=== PATIENT | female | born 1955 | race Caucasian/White ===

== ENCOUNTER 2018-02-16 17:33 | Emergency (ER) | payer BC ==
[2018-02-16 18:22] VITALS: BP 145/96
--- NOTE | 2018-02-16 19:09 | UC ---
Respiratory Complaint HPI - HPI Summary HPI Summary: 4 day hx of sinus pressure, cough, no fever or shortness of breath. Concerned because of hx of pneumonia. Has used inhalers in the past for mild asthma she has had post pneumonia. Works in a first grade classroom. - History of Current Complaint Chief Complaint: UCGeneralIllness Stated Complaint: UPPER RESPIRATORY Time Seen by Provider: 02/16/18 18:59 Hx Obtained From: Patient Hx Last Menstrual Period: ~2006-12 Onset/Duration: Gradual Onset, Lasting Days - 4 Timing: Intermittent Episodes Severity Initially: Mild Severity Currently: Moderate Pain Intensity: 0 Character: Cough: Productive Aggravating Factors: Exertion Alleviating Factors: Nothing Associated Signs And Symptoms: Positive: URI, Nasal Congestion, Sinus Discomfort - Risk Factors Pulmonary Embolism Risk Factors: Negative Cardiac Risk Factors: Negative Pseudomonas Risk Factors: Negative Tuberculosis Risk Factors: Negative - Allergies/Home Medications Allergies/Adverse Reactions: Allergies Allergy/AdvReac Type Severity Reaction Status Date / Time morphine Allergy Intermediate Hives Verified 02/16/18 18:22 Home Medications: Home Medications Levothyroxine TAB* [Synthroid TAB*] 25 mcg PO DAILY 02/16/18 [History Confirmed 02/16/18] PMH/Surg Hx/FS Hx/Imm Hx - Additional Past Medical History Additional PMH: fibromyalgia and chronic pain Previously Healthy: Yes GI/ History: Gastroesophageal Reflux - Surgical History Surgical History: Yes Surgery Procedure, Year, and Place: BACK SURGERY WITH SCREWS AND RODS FOR SCOLIOSIS 2006-12~ - Family History Known Family History: Positive: Hypertension, Diabetes - Social History Occupation: Employed Full-time Lives: With Family Alcohol Use: None Substance Use Type: None Smoking Status (MU): Never Smoked Tobacco Review of Systems Constitutional: Fatigue Skin: Negative Eyes: Negative ENT: Sinus Congestion Respiratory: Cough Cardiovascular: Negative Gastrointestinal: Nausea Genitourinary: Negative Motor: Negative Neurovascular: Negative Musculoskeletal: Negative Neurological: Negative Psychological: Negative Is Patient Immunocompromised?: No All Other Systems Reviewed And Are Negative: Yes Physical Exam Triage Information Reviewed: Yes Appearance: Ill-Appearing - mildly unwell, congested., Obese Vital Signs: Initial Vital Signs Temp 97.5 F 02/16/18 18:14 Pulse 87 02/16/18 18:14 Resp 20 02/16/18 18:14 BP 145/96 02/16/18 18:14 Pulse Ox 97 02/16/18 18:14 Eye Exam: Normal ENT Exam: Normal ENT: Positive: Pharynx normal, TMs normal Dental Exam: Normal Neck exam: Normal Neck: Positive: No Lymphadenopathy Respiratory Exam: Normal Respiratory: Positive: Lungs clear, Normal breath sounds Cardiovascular Exam: Normal Cardiovascular: Positive: RRR, No Murmur Abdominal Exam: Normal Musculoskeletal Exam: Normal Neurological Exam: Normal Psychological Exam: Normal Skin Exam: Normal UC Diagnostic Evaluation - Laboratory O2 Sat by Pulse Oximetry: 97 Respiratory Course/Dx - Course Course Of Treatment: symptomatic treatment of viral illness, albuterol for congested cough - Differential Dx/Diagnosis Differential Diagnosis/HQI/PQRI: Asthma, Laryngitis, Sinusitis Provider Diagnoses: viral uri Discharge - Sign-Out/Discharge Documenting (check all that apply): Patient Departure All imaging exams completed and their final reports reviewed: No Studies - Discharge Plan Condition: Stable Disposition: HOME Prescriptions: Albuterol HFA INHALER* [Ventolin HFA Inhaler*] 2 puff INH Q6H PRN #1 mdi PRN Reason: Wheezing Patient Education Materials: Upper Respiratory Infection (ED) Forms: *Work Release Referrals: Charley Alejandro PA [Primary Care Provider] - Additional Instructions: Continue symptomatic treatment, and use your albuterol inhaler to help to decrease bouts of coughing. If your sinus pain persists, you develop fever or shortness of breath, please follow up. - Billing Disposition and Condition Condition: STABLE Disposition: Home
== END 2018-02-16 19:28 | disposition home or self-care (01) ==
LOC: UCCORT 17:33
DX: J06.9 Acute upper respiratory infection, unspecified (principal); Z88.5 Allergy status to narcotic agent
CPT/HCPCS: 99212; G0463

== ENCOUNTER 2019-09-09 17:52 | Emergency (ER) | payer BC ==
--- NOTE | 2019-09-09 18:55 | ED ---
Respiratory - HPI Summary HPI Summary: 64 yo WF h/o sleep apnea c/o pain on RUQ chestwall x few days associated with cough with green yellow sputum x few days, denies SOB, f/c, pain is not related to eating food - History of Current Complaint Chief Complaint: UCGeneralIllness Stated Complaint: RIGHT SIDE PAIN Time Seen by Provider: 09/09/19 18:27 Hx Obtained From: Patient Onset/Duration: Lasting Days Pain Intensity: 8 Sputum Amount: None Sputum Color: Yellow, Green - Allergy/Home Medications Allergies/Adverse Reactions: Allergies Allergy/AdvReac Type Severity Reaction Status Date / Time morphine Allergy Intermediate Hives Verified 09/09/19 18:19 Home Medications: Home Medications Amitriptyline TAB* [Elavil TAB*] 50 mg PO BEDTIME 08/28/12 [History Confirmed ] Omeprazole CAP (NF) [Prilosec CAP* 20 MG] 20 mg PO BEDTIME 08/28/12 [History Confirmed 09/09/19] Sertraline* [Zoloft*] 25 mg PO BEDTIME 08/28/12 [History Confirmed 09/09/19] Hydrochlorothiazide 12.5 mg BEDTIME 02/13/14 [History Confirmed 09/09/19] Nabumetone TAB* [Relafen TAB*] 2 tab PO BEDTIME 04/12/16 [History Confirmed ] Albuterol HFA INHALER* [Ventolin HFA Inhaler*] 2 puff INH Q6H PRN #1 mdi [Rx Confirmed 09/09/19] Levothyroxine TAB* [Synthroid 25 MCG TAB*] 25 mcg PO DAILY 02/16/18 [History Confirmed 09/09/19] Azithromycin TAB* [Zithromax TAB (Z-NTAALIA) 250 mg #6 tabs] 2 tab PO .TODAY, THEN 1 DAILY #1 natalia 09/09/19 [Rx] Potassium Chlor TAB* [Klor Con ER TAB 10 MEQ*] 10 meq PO BEDTIME 09/09/19 [ History Confirmed 09/09/19] PMH/Surg Hx/FS Hx/Imm Hx Previously Healthy: Yes Endocrine/Hematology History: Reports: Hx Thyroid Disease Denies: Hx Diabetes Cardiovascular History: Denies: Hx Hypertension Respiratory History: Reports: Hx Asthma - MILD Denies: Hx Chronic Obstructive Pulmonary Disease (COPD) GI History: Denies: Hx Ulcer - Surgical History Surgery Procedure, Year, and Place: BACK SURGERY WITH SCREWS AND RODS FOR SCOLIOSIS 2006-~. right knee/torn meniscus 2019 Infectious Disease History: Yes Infectious Disease History: Reports: Hx Shingles Denies: Hx Hepatitis, Hx Human Immunodeficiency Virus (HIV), Traveled Outside the [place] in Last 30 Days - Family History Known Family History: Positive: Hypertension, Diabetes - Social History Alcohol Use: None Substance Use Type: Reports: None Smoking Status (MU): Never Smoked Tobacco Review of Systems Constitutional: Negative Negative: Fever, Chills Eyes: Negative Positive: Nasal Discharge Cardiovascular: Negative Positive: Cough. Negative: Shortness Of Breath Gastrointestinal: Negative Genitourinary: Negative Musculoskeletal: Negative Skin: Negative Neurological/Mental Status: Negative Psychological: Normal All Other Systems Reviewed And Are Negative: Yes Physical Exam - Summary Physical Exam Summary: Vital Signs Reviewed: Yes Appearance: Positive: No Pain Distress Skin: Positive: Warm Head/Face: Positive: Normal Head/Face Inspection Eyes: Positive: Normal ENT: Positive: Normal ENT inspection Dental: Negative: Cervical Lymphadenopathy Neck: Positive: Supple Respiratory/Lung Sounds: Positive: Clear to Auscultation, no w/r/r Cardiovascular: Positive: Normal, RRR, S1, S2 Abdomen Description: Positive: Nontender Musculoskeletal: Positive: Normal Neurological: Positive: Normal Psychiatric: Positive: Normal Disposition - Course Assessment/Plan: CXR- Katlyn rods in spine, mild developing haziness at righ lung base but not definite PNA, pt has clinical sx more c/w bronchitis at this time, will tx with azithromycin and advised to f/u PCP for script for RUQ sono vs GI consult for worsening RUQ pain in the next week - Diagnoses Provider Diagnoses: Inspiratory pain - Critical Care Time Critical Care Statement: Critical care time is provided exclusive of any time spent performing procedures. Discharge ED - Sign-Out/Discharge Documenting (check all that apply): Patient Departure All imaging exams completed and their final reports reviewed: Yes - Discharge Plan Condition: Stable Disposition: HOME Prescriptions: Azithromycin TAB* [Zithromax TAB (Z-NATALIA) 250 mg #6 tabs] 2 tab PO .TODAY, THEN 1 DAILY #1 natalia Patient Education Materials: Acute Bronchitis (ED) Referrals: Charley Alejandro PA [Primary Care Provider] - - Billing Disposition and Condition Condition: STABLE Disposition: Home
[2019-09-09] MEDS ORDERED: Azithromycin TAB* 250 MG PO ONE (19:25)
[2019-09-09 19:35] VITALS: BP 135/89
== END 2019-09-09 19:37 | disposition home or self-care (01) ==
LOC: UCCORT 17:52
DX: R07.1 Chest pain on breathing (principal); E07.9 Disorder of thyroid, unspecified; Z79.890 Hormone replacement therapy; Z88.5 Allergy status to narcotic agent; J45.909 Unspecified asthma, uncomplicated
CPT/HCPCS: 71046; 99212; A9270-GY; G0463